=== PATIENT | female | born 1965 | race Two or more races ===

== ENCOUNTER 2025-05-18 07:58 | Emergency (ER) | payer MEDICAID, SELFPAY ==
[2025-05-18 08:31] VITALS: BP 106/69; PULSE 113; RESP 16; TEMP 38.1; O2SAT 93; BMI 32.1
--- NOTE | 2025-05-18 09:14 | PD.EDRME ---
Rapid Medical Screening Exam RME Arrival date/time: 05/18/25 07:58 This is a 59-year-old female that is brought in by daughter with complaints of nausea, vomiting, diarrhea and abdominal pain that started last night. Patient states that she thinks it might have been the milk she drank last night. Patient states she has been vomiting all night. Patient has a history of diabetes and has had a in the past. I have greeted and performed a focused initial assessment of this patient. Initial appropriate labs ordered at this time. A comprehensive ED assessment and evaluation of the patient and analysis of all test and completion of medical decision making process will be conducted by additional ED provider. Chief Complaint: Nausea/Vomiting/Diarrhea Time Seen by Provider: 05/18/25 08:02 Vital signs: Vital Signs Temperature 100.6 F H 05/18/25 08:31 Pulse Rate 113 H 05/18/25 08:31 Respiratory Rate 16 05/18/25 08:31 Blood Pressure 106/69 05/18/25 08:31 Pulse Oximetry (%) 93 L 05/18/25 08:31 Oxygen Delivery Method Room Air 05/18/25 08:31
[2025-05-18] MEDS: ONDANSETRON ODT 4 MG TABRAP PO (09:19)
[2025-05-18 09:20] VITALS: TEMP 38.1
[2025-05-18] MEDS: ACETAMINOPHEN 500 MG TABLET 1000 MG PO (09:20)
[2025-05-18 10:09] LABS: Basophils # (Auto) 0.0 Thou/mm3 (0.0-0.2); Basophils % (Auto) 0 % (0-2.5); Eosinophils # (Auto) 0.0 Thou/mm3 (0.0-0.5); Eosinophils % (Auto) 0 % (0-10); Hematocrit 43.0 % (36.0-46.0); Hemoglobin 14.3 g/dL (12.0-16.0); Immature Granulocytes Auto 0.03 Thou/mm3 (0.00-0.00); Lymphocytes # (Auto) 0.8 Thou/mm3 (1.0-4.8); Lymphocytes % (Auto) 8 % (10-50); Mean Corpuscular HGB Conc 33.3 g/dl (31.0-37.0); Mean Corpuscular Hemoglobin 30.5 pg (25.0-35.0); Mean Corpuscular Volume 92 fL (80-100); Monocytes # (Auto) 0.4 Thou/mm3 (0.0-0.8); Monocytes % (Auto) 4 % (0-12); Neutrophils # (Auto) 8.4 Thou/mm3 (1.8-7.7); Neutrophils % (Auto) 87 % (37-80); Nucleated Red Blood Cell # 0.00 Thou/mm3 (0.00-0.00); Nucleated Red Blood Cell % 0 /100 WBC (0); Platelet Count 270 Thou/mm3 (140-440); RDW Standard Deviation 48.8 fL (36.4-46.3); Red Blood Count 4.69 Miln/mm3 (4.00-5.20); White Blood Count 9.7 Thou/mm3 (3.6-11.0)
[2025-05-18 10:19] LABS: Alanine Aminotransferase 22 U/L (10-49); Albumin, Serum 4.4 gm/dL (3.4-4.8); Albumin/Globulin Ratio 1.4 (1.2-2.2); Alkaline Phosphatase 115 U/L (46-116); Anion Gap 10 (7-16); Aspartate Amino Transferase 19 U/L (0-34); BUN/Creatinine Ratio 25 Ratio (12-20); Bilirubin,Total 0.7 mg/dL (0.3-1.2); Blood Urea Nitrogen 25 mg/dL (9-23); Calcium 9.4 mg/dL (8.3-10.6); Calcium (Corrected) 9.4 mg/dL (8.5-10.1); Carbon Dioxide 24.7 mMol/L (20.0-31.0); Chloride 102 mMol/L (98-107); Creatinine (Component) 1.0 mg/dL (0.6-1.3); Estimated Creatinine Clearance 55.5 mL/min (>60); Globulin 3.1 gm/dL (2.3-3.5); Glucose 169 mg/dL (74-106); Lipase 41 U/L (12-53); Osmolality,Calculated 282 (275-295); Potassium 4.0 mMol/L (3.4-5.1); Sodium 137 mMol/L (136-145); Total Protein 7.5 gm/dL (5.7-8.2); eGFR > 60 See Note
[2025-05-18 11:03] VITALS: BP 97/65; PULSE 96; RESP 18; TEMP 36.6; O2SAT 97
--- NOTE | 2025-05-18 12:43 | EDNOTE_ITS ---
Upper Respiratory Inf. RME/HPI General Chief Complaint: Nausea/Vomiting/Diarrhea Stated Complaint: VOMIT, DIARRHEA, H/A, FEVER, CHILLS X LAST NITE Time Seen by Provider: 05/18/25 08:02 Arrival date/time: 05/18/25 07:58 This is a 59-year-old female that is brought in by daughter with complaints of nausea, vomiting, diarrhea and abdominal pain that started last night. Patient states that she thinks it might have been the milk she drank last night. Patient states she has been vomiting all night. Patient has a history of diabetes and has had a in the past. RME / HPI RME / HPI Narrative: 05/18/25 07:58 This is a 59-year-old female that is brought in by daughter with complaints of nausea, vomiting, diarrhea and abdominal pain that started last night. Patient states that she thinks it might have been the milk she drank last night. Patient states she has been vomiting all night. Patient has a history of diabetes and has had a in the past. I have greeted and performed a focused initial assessment of this patient. Initial appropriate labs ordered at this time. A comprehensive ED assessment and evaluation of the patient and analysis of all test and completion of medical decision making process will be conducted by additional ED provider. Related Data Home Medications ?Medication ?Instructions ?Recorded ?Confirmed metformin 850 mg tablet 850 mg PO QDAY 06/09/21 08/0 02/24 svmjauhv-elwbhyu-blfd-iron 18 1 tab PO QDAY 06/09/21 0 06/09/21 mg-FA 400 mcg-vit K 25 mcg tablet (One-A-Day Women's Complete(with vit K)) Previous Rx's ?Medication ?Instructions ?Recorded ibuprofen 800 mg tablet 800 mg PO Q6H PRN pain #14 t abs 05/18/25 ondansetron 4 mg disintegrating 4 mg PO Q6H PRN nausea and 05/18/25 tablet vomiting #10 tabs Allergies Allergy/AdvReac Type Severity Reaction Status Date / Time piperacillin Allergy Intermediate itchiness, Verified 05/18/25 08:02 redness to the face and upper body tazobactam Allergy Intermediate itchiness, Verified 05/18/25 08:02 redness to the face and upper body Review of Systems Review of Systems Systems Reviewed: All systems reviewed, normal except as documented Past Medical History Past Medical History CARDIAC: Positive Hypertension; Negative Congestive Heart Failure RESPIRATORY: Negative Chronic Obstructive Pulmonary Disease (COPD) ENDOCRINE: Negative Diabetes Mellitus Type 1 Social History SMOKING STATUS: Never smoker Travel History EBOLA RISK: No ED Exam Narrative Physical exam: VITAL SIGNS: Reviewed. GENERAL APPEARANCE: Alert and interactive, follows commands, no acute distress, HEAD AND FACE: Non-traumatic. ENT: PERRL, conjuctiva pink and clear, eyelid no trauma, Mucous membrane moist. NECK: Supple, nontender, no nuchal rigidity. CHEST: No tenderness, no crepitus, no paradoxical movement, no retractions. LUNGS: Clear, well ventilated, symmetric, no rales, no wheezing, no rhonchi, no stridor, good breath sounds bilaterally. HEART: Regular rate, regular rhythm, no murmur, no gallops. ABDOMEN: Soft, nondistended, no guarding, nontender NEUROLOGICAL: Gross motor function intact sensory function intact, Appropriate for age. MUSCULOSKELETAL: low back nontender, full range of motion. EXTREMITIES: No redness no swelling no skin breakdown on bilateral foot and leg. Distal neurovascular status intact bilateral foot SKIN: Color pink, dry, no rash, no lacerations, no abrasions, no contusions. Course Quality Measures none Orders Category Date Time Status Bedside COVID-19 Antigen Test NOW Care 05/18/25 09:12 Completed Bedside Influenza A&B Antigen Test NOW Care 05/18/25 09:12 Completed CBC Stat Lab 05/18/25 09:39 Completed Comprehensive Metabolic Panel Stat Lab 05/18/25 09:39 Completed Lipase Stat Lab 05/18/25 09:39 Completed Acetaminophen Tab [Tylenol ES Tab] Med 05/18/25 09:13 Discontinued 1,000 mg PO X1 ONE Ondansetron Odt [Zofran Odt] Med 05/18/25 09:13 Discontinued 4 mg PO X1 ONE Vital Signs Vital signs: Vital Signs Temperature 100.6 F H 05/18/25 08:31 Pulse Rate 113 H 05/18/25 08:31 Respiratory Rate 16 05/18/25 08:31 Blood Pressure 106/69 05/18/25 08:31 Pulse Oximetry (%) 93 L 05/18/25 08:31 Oxygen Delivery Method Room Air 05/18/25 08:31 Upper Respiratory Infection MDM Narrative MDM Narrative:: Patient feels better after Tylenol and Zofran. Patient states she wants go home and sleep. Patient tolerating p.o. fluids. Pt labs reviewed and unremarkable. Patient was positive for influenza A. I did talk to family at length that she is contagious. I encouraged fluids and rest. Patient told to follow-up with primary provider in 1 to 2 days. Come back to the emergency room if symptoms change or worsen. Patient data External records reviewed:: [facility] previous records Clinical information provided by:: patient Social determinants that could affect healthcare access:: none Patient has the following chronic illnesses:: none How is presenting disease/condition affected by chronic disease/condition?: no chronic disease Evaluation data The following diagnostics were reviewed and interpreted by me:: lab results Lab and/or radiology exams considered but not ordered:: none Interpretation Summary: see note Medications / Prescriptions Medications or Prescriptions considered but not ordered:: none Medication administrations:: Medication Administration History Discontinued Medications Acetaminophen (Acetaminophen 500 Mg Tablet) 1,000 mg PO X1 ONE Stop: 05/18/25 09:14 Last Admin: 05/18/25 09:20 Dose: 1,000 mg Documented By: Ondansetron HCl (Ondansetron Odt 4 Mg Tabrap) 4 mg PO X1 ONE; Protocol Stop: 05/18/25 09:14 Last Admin: 05/18/25 09:19 Dose: 4 mg Documented By: see [facility] Consultations Consultation(s) initiated? (list below): No Diagnosis Upper Respiratory Differential Diagnosis: upper respiratory infection, otitis media, sinusitis, viral infection, bronchitis, influenza and pharyngitis Most likely diagnosis given after review of the tests above:: influenza Admission Indicated Admission indicated?: not indicated Admission Request Was there a request for admission?: No Disposition Plan Disposition Plan: Discharge Discharge Attestation Discharge Attestation: The patient and all family members were given an opportunity to ask questions and understood the discharge instructions. Discharge instructions specifically effects, indications for sooner follow up or return to the emergency department, and the expected course of current diagnosis. Patient condition: Stable Discharge Plan Plan Patient Disposition: HOME (Self Care) Patient condition on transfer: Stable Prescriptions/Referrals Prescriptions/Med Rec: New ondansetron 4 mg tablet,disintegrating 4 mg PO Q6H PRN (Reason: nausea and vomiting) Qty: 10 0RF ibuprofen 800 mg tablet 800 mg PO Q6H PRN (Reason: pain) Qty: 14 0RF No Action metformin 850 mg Tablet 850 mg PO QDAY One-A-Day Women's Complete(vK) 18 mg-400 mcg- 25 mcg Tablet 1 tab PO QDAY Referrals: Arjun Lima [Primary Care Provider] - In 1 week Problem List Clinical Impression: Influenza A, Vomiting Patient/Caregiver Discharge Instructions Discharge Activity: activity as tolerated Education Materials: ED Influenza (Adult) Additional Instructions: Follow up with primary provider in 1-2 days. Come back to ED if symptoms change or worsen Print Language: [place] Stand Alone Forms: Vani Award Info., Patient Portal Info Letter PA/DEVELOPMENT ADVISOR Supervising Physician PA/DEVELOPMENT ADVISOR Supervising Physician: [email or web address]
[2025-05-18 12:53] VITALS: TEMP 37.1
== END 2025-05-18 12:54 | disposition home or self-care (01) ==
PROVIDERS: Emergency Provider Nurse Practitioner Family; PCP Physician Assistant
DX: J10.2 Influenza due to other identified influenza virus with gastrointestinal manifestations (principal); J10.1 Influenza due to other identified influenza virus with other respiratory manifestations; E11.9 Type 2 diabetes mellitus without complications
CPT/HCPCS: 36415; 80053; 81001; 83690; 85025; 87400; 87811; 99284; Q0162; A9270